=== PATIENT | male | born 1965 | race African-American/Black ===

== ENCOUNTER 2016-08-09 14:29 | Emergency (ER) | payer MEDICAID ==
[2016-08-09 14:35] VITALS: BP 123/80; PULSE 93
[2016-08-09] MEDS ORDERED: DOXYCYCLINE HYCLATE 100 MG CAP/TAB PO ONE (14:58)
[2016-08-09] MEDS ORDERED: OXYCODONE/APAP 5/325 TAB PO ONE (14:58)
--- NOTE | 2016-08-09 15:15 | EDPHY ---
H & P Stated Complaint: dog bite r leg in [place] last night Source: Patient Exam Limitations: No limitations - Personal History Current Tetanus/Diphtheria Vaccine: Yes Tetanus Vaccine Date: works here - Medical/Surgical History Hx Asthma: Yes Hx Chronic Respiratory Disease: No Hx Diabetes: No Hx Cardiac Disease: No Hx Renal Disease: No Hx Cirrhosis: No Hx Alcoholism: No Hx HIV/AIDS: No Hx Splenectomy or Spleen Trauma: No Other PMH: denies pmh, asthma - Social History Smoking Status: Never smoked HPI/ROS: CHIEF COMPLAINT: Dog bite right leg HISTORY OF PRESENT ILLNESS: Patient complains of dog bite to the right leg. This happened late last night. He was out taking out his trash when a pit bull attacked his leg. Moderate to severe pain that is worsened overnight. Some redness around it. No purulence. No fever chills. No complaint distally. The pain is so severe it is hard for him to walk. Did minimally improved at rest. No numbness or tingling. No pulsatile blood flow. No other associated complaints or modifying factors. 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 REVIEW OF SYSTEMS: Ten systems reviewed and are negative unless otherwise noted in the HPI EXAMINATION General Appearance: Alert, no distress Cardiovascular: Pulses normal throughout. Symmetric DP and PT pulses are 2+. Brisk cap refill Neurological: A&O, sensory symmetric, strength symmetric Skin: Warm and dry, no rash. There are puncture wounds to the right leg consistent with dog bite. No purulence. Minimal surrounding erythema. Minimal edema. Neurovascular intact distally. Extremities: Tenderness over the area of the dog bite to the calf. There is no bony tenderness. No crepitus. Range of motion is fully intact. Psychiatric: Mood and affect normal MDM: 2:58 p.m. Dog bite to the right lateral lower leg. Neurovascular intact. No signs of infection. Pain is commensurate to his injury. His tetanus is up-to-date. We will start antibiotic treatment with doxycycline after copious irrigation here. He is to follow up either here or with his primary care physician for 48 hour wound check. He is to return sooner for signs of worsening or signs of infection as we discussed. ED Precautions: Worsening pain. Erythema, edema, cyanosis, pallor, paresthesia or anesthesia. SUPERVISION: This patient was independently evaluated without direct examination by the attending physician. Case was discussed with attending physician. (Clemente He) Constitutional: Initial Vital Signs Temperature (C) 97.9 F 08/09/16 14:33 Heart Rate 93 08/09/16 14:33 Respiratory Rate 16 08/09/16 14:33 Blood Pressure 123/80 H 08/09/16 14:33 O2 Sat (%) 93 08/09/16 14:33 O2 Delivery Mode Room Air Allergies/Adverse Reactions: Penicillins Allergy (Intermediate, Verified 08/11/16 16:01) Dyspnea Home Medications: Medication Instructions Recorded Albuterol 10/26/15 Doxycycline Hyclate 100 mg PO BID #20 tab 08/09/16 oxyCODONE HCL/ACETAMINOPHEN 1 each PO Q4-6PRN PRN #14 tablet 08/09/16 [Percocet 5-325 mg Tablet] Medical Decision Making ED Course/Re-evaluation: I did not see this patient while he was in the emergency department. However his care was discussed with the PA while the patient was in the department. I agree with treatment plan and management (Chris Yanes) - Data Points Medications Given: Discontinued Medications Doxycycline Hyclate (Doxycycline Hyclate) 100 mg PO EDNOW ONE PRN Reason: Protocol Stop: 08/09/16 14:59 Last Admin: 08/09/16 15:25 Dose: 100 mg Oxycodone/Acetaminophen (Percocet 5/325) 1 tab PO EDNOW ONE Stop: 08/09/16 14:59 Last Admin: 08/09/16 15:25 Dose: 1 tab Departure - Departure Disposition: Home, Routine, Self-Care Clinical Impression: Dog bite of calf Qualifiers: Encounter type: initial encounter Laterality: right Qualified Code(s): S81.851A - Open bite, right lower leg, initial encounter; W54.0XXA - Bitten by dog, initial encounter Condition: Good Instructions: Animal Bite (ED) Additional Instructions: Daily wound care as discussed. Antibiotics as discussed for 10 days. Follow up here or with primary care physician in 48 hours for wound check Referrals: NONE *PRIMARY CARE P,. [Primary Care Provider] - As per Instructions [facility],. [Clinic] - As per Instructions Physician,Emergency Dept, [Medical Doctor] - As per Instructions Stand Alone Forms: Work Excuse Prescriptions: Doxycycline Hyclate 100 mg PO BID #20 tab oxyCODONE HCL/ACETAMINOPHEN [Percocet 5-325 mg Tablet] 1 each PO Q4-6PRN PRN # 14 tablet PRN Reason: Pain, Breakthrough
[2016-08-09 16:16] VITALS: RESP 18; TEMP 98.1; O2SAT 98
== END 2016-08-09 16:16 | disposition home or self-care (01) ==
DX: S81.851A Open bite, right lower leg, initial encounter (principal); J45.909 Unspecified asthma, uncomplicated; W54.0XXA Bitten by dog, initial encounter

== ENCOUNTER 2016-08-11 16:00 | Emergency (ER) | payer MEDICAID ==
--- NOTE | 2016-08-11 16:13 | EDPHY ---
H & P Smoking Status: Never smoked Time Seen by Provider: 08/11/16 16:05 HPI/ROS: CHIEF COMPLAINT: Wound check HISTORY OF PRESENT ILLNESS: 51-year-old penicillin allergic male seen emergency department 2 days ago post dog bite to his right lateral calf region, started on monotherapy doxycycline told to return 2 days for recheck. Return to the ER stating that he notes no lymphangitic streaking. He is able to bear weight albeit with pain. 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 He has been unable to keep his feet elevated for any significant period of time. Denies: Fever, chills, nausea, vomiting, flu-like symptoms. PHYSICAL EXAM (Prior to examination, patient consented to physical exam, hands were washed and my usual and customary physical exam procedures followed) 1) GENERAL: Well-developed, well-nourished, alert and oriented. Appears to be in no acute distress. 2) HEAD: Normocephalic 3) HEENT: sclera anicteric 4) LUNGS: Breathing comfortably. 5) SKIN: dog bite puncture wound right calf is granulating appropriately with no signs of infection, no fetid odor, no erythema, no lymphangitic streaking. 6) MUSCULOSKELETAL: compartments are soft. No crepitus. DP PT pulses present and brisk. Dorsiflexion plantar flexion do not elicit pain. Brisk capillary refill. 7) NEUROLOGIC: Full sensation (Shiva,D [place]) Constitutional: Initial Vital Signs Temperature (C) 36.2 C 08/11/16 16:00 Heart Rate 75 08/11/16 16:00 Respiratory Rate 16 08/11/16 16:00 Blood Pressure 133/73 H 08/11/16 16:00 O2 Sat (%) 96 08/11/16 16:00 O2 Delivery Mode Room Air Allergies/Adverse Reactions: Penicillins Allergy (Intermediate, Verified 08/11/16 16:01) Dyspnea Home Medications: Medication Instructions Recorded Albuterol 10/26/15 Doxycycline Hyclate 100 mg PO BID #20 tab 08/09/16 oxyCODONE HCL/ACETAMINOPHEN 1 each PO Q4-6PRN PRN #14 tablet 08/09/16 [Percocet 5-325 mg Tablet] MDM/Departure - [facility] ED Course/Re-evaluation: Patient also seen by Dr. Chris Yanes in the ER. Patient's dog bite appears to be healing well. Doubt infection. Doubt compartment syndrome. Recommend elevation. Given work note. Usual and customary wound precautions provided. ( Victor Manuel Shannon) I also saw the patient in the emergency department. I reviewed the history of dog bite in [place]. I reviewed the history of him being penicillin allergic and taking doxycycline. The exam shows a healing puncture and small tear but no evidence of infection. The patient, the PA and I discussed further treatment , criteria for return and importance of follow-up. (Chris Yanes) - Depart Disposition: Home, Routine, Self-Care Clinical Impression: Visit for wound check Condition: Good Instructions: Animal Bite (ED) Additional Instructions: Return to the ER if you develop redness, swelling, discharge, warmth to the wound, red streaks going up your leg, or any other symptoms that concern you. Keep taking your antibiotic until finished Stand Alone Forms: Work Excuse Referrals: [facility],. [Clinic] - 5-7 days, call for appt.
[2016-08-11 16:45] VITALS: BP 134/76; PULSE 87; RESP 15; TEMP 98.1; O2SAT 98
== END 2016-08-11 16:40 | disposition home or self-care (01) ==
DX: Z48.01 Encounter for change or removal of surgical wound dressing (principal)
CPT/HCPCS: G0463